=== PATIENT | male | born 1970 | race Caucasian/White ===

== ENCOUNTER 2023-08-25 01:43 | Emergency (ER) | payer BC, OTHER ==
--- NOTE | 2023-08-25 02:10 | ED Physician Documentation ---
PD HPI SKIN - Stated complaint Stated Complaint: HIVES - Chief complaint Chief Complaint: Allergic Rx - History obtained from History obtained from: Patient - Additional information Additional information: HPI from patient. Patient presents due to diffuse pruritic rash, worsening since onset 2 days ago. He believes this is due to amoxicillin prescribed after a root canal. He had been taking the amoxicillin for a week before symptom onset. Patient says he had similar reaction to amoxicillin in the past and that also did not manifest until several days into the course of the amoxicillin. Patient went to a walk-in clinic last night (08/23) and was given PO steroid (he describes medicinal-tasting liquid that began with a "d", thus likely decadron) and has been taking 25mg PO benadryl Q4 hours. He was not prescribed any medications. He presents to ED at this time due to worsening of the rash; more diffuse and intensity of itching and burning gradually, steadily worse. He denies dyspnea, lightheadedness. He notes facial swelling but denies oropharyngeal swelling, denies tightness/constriction of throat, chest. Review of Systems Cardiac: denies: Chest pain / pressure Respiratory: denies: Dyspnea, Wheezing Skin: reports: Rash PD PAST MEDICAL HISTORY - Past Medical History Past Medical History: No Cardiovascular: None Respiratory: None Neuro: None Endocrine/Autoimmune: None GI: None : None HEENT: None Psych: None Musculoskeletal: None Derm: None - Past Surgical History Past Surgical History: Yes - Present Medications Home Medications: Ambulatory Orders Medication Instructions Recorded Confirmed EPINEPHrine [Epinephrine] 0.3 mg IJ ONCE PRN #2 each 08/25/23 Ondansetron Odt [Zofran Odt] 4 mg TL Q6H PRN #10 tablet 08/25/23 predniSONE [Deltasone] 40 mg PO DAILY 4 Days #8 tablet 08/25/23 - Allergies Allergies/Adverse Reactions: Allergies Allergy/AdvReac Type Severity Reaction Status Date / Time amoxicillin Allergy Hives Verified 08/25/23 01:57 - Social History Does the pt smoke?: Yes Smoking Status: Current every day smoker Does the pt drink ETOH?: Yes Does the pt have substance abuse?: No - Immunizations Immunizations are current?: Yes - POLST Patient has POLST: No PD ED PE NORMAL - Vitals Vital signs reviewed: Yes - General General: Alert and oriented X 3, No acute distress, Well developed/nourished - HEENT HEENT: Pharynx benign (no lip swelling, no intraoral swelling. airway widely patent) - Cardiac Cardiac: RRR, No murmur - Respiratory Respiratory: No respiratory distress, Clear bilaterally PD ED PE EXPANDED - HEENT HEENT: Other (confluent facial erythema with mild periorbital edema) - Derm Derm: Urticaria (diffuse, body-wide urticaria with areas of confluence) Results - Vitals Vitals: Oxygen O2 Source Room air PD Medical Decision Making - ED course Complexity details: considered differential, d/w patient ED course: Given 0.3mg IM epinephrine, 25mg benadryl PO, 20mg PO pepcid. He vomited shortly after being given these medications and thus IV established and he is given 4mg IV zofran, 25mg benadryl IV, 20mg IV pepcid. On reevaluation, he is resting comfortably. The rash is markedly improved and he has minimal residual facial erythema, no noticeable periorbital edema. He says he feels much improved. Return precautions reviewed. I have electronically submitted prescriptions for epi-pen, 4 days of QD 40mg prednisone, and PRN 4mg TL zofran to patient's pharmacy of choice Departure - Departure Disposition: 01 Home, Self Care Clinical Impression: Allergic reaction Qualifiers: Encounter type: initial encounter Qualified Code(s): T78.40XA - Allergy, unspecified, initial encounter Condition: Good Instructions: ED Drug React Allergic Prescriptions: predniSONE [Deltasone] 40 mg PO DAILY 4 Days #8 tablet EPINEPHrine [Epinephrine] 0.3 mg IJ ONCE PRN #2 each PRN Reason: Anaphylaxis Ondansetron Odt [Zofran Odt] 4 mg TL Q6H PRN #10 tablet PRN Reason: Nausea / Vomiting Comments: I have electronically submitted prescriptions for EpiPen, ondansetron (anti- nausea medication), and prednisone (steroid to be taken once per day for the next 4 days) to the [facility] in [place]. As we discussed, you should continue to take the Benadryl as per label instructions but only as needed for symptoms of allergic reaction. You can also take Pepcid per label instructions until the symptoms resolve, as it can effect mild improvement for some patients having allergic reactions if the more traditional anti-histamines (such as benadryl) are not adequately effective. Discharge Date/Time: 08/25/23 04:35
[2023-08-25] MEDS ORDERED: CHERRY SYRUP 10 ML UDC PO ONE (02:22)
[2023-08-25] MEDS ORDERED: DEXAMETHASONE 10 MG/ML VIAL PO STA (02:22)
[2023-08-25] MEDS ORDERED: FAMOTIDINE 20 MG TABLET PO STA (02:22)
[2023-08-25] MEDS ORDERED: EPINEPHrine 1 MG/ML AMP IM STA (02:22)
[2023-08-25] MEDS ORDERED: diphenhydrAMINE 25 MG CAPSULE PO STA (02:22)
[2023-08-25] MEDS ORDERED: methylPREDNISolone SUCCINATE 125 MG/2 ML VIAL IVP STA (02:48)
[2023-08-25] MEDS ORDERED: FAMOTIDINE 20 MG/2 ML VIAL IVP STA (02:48)
[2023-08-25] MEDS ORDERED: diphenhydrAMINE INJ 50 MG/ML VIAL IVP STA (02:48)
[2023-08-25] MEDS ORDERED: ONDANSETRON 4 MG/2 ML VIAL IVP STA (04:20)
[2023-08-25] MEDS ORDERED: ONDANSETRON ODT 4 MG Prepack 2 TL PRN (04:22)
[2023-08-25 04:39] VITALS: BP 106/70; O2SAT 95
== END 2023-08-25 04:35 | disposition home or self-care (01) ==
LOC: ED 01:43
DX: T78.40XA Allergy, unspecified, initial encounter (principal); F17.200 Nicotine dependence, unspecified, uncomplicated
CPT/HCPCS: 96372; 96374; 96375; 99283; 99285; A9270; J1200

== ENCOUNTER 2023-08-26 17:41 | Emergency (ER) | payer BC ==
[2023-08-26] MEDS ORDERED: CHERRY SYRUP 10 ML UDC PO ONE ×2 (17:58→22:00)
[2023-08-26] MEDS ORDERED: SODIUM CHLORIDE 0.9% 1,000 ML IV STA (17:58)
[2023-08-26] MEDS ORDERED: diphenhydrAMINE INJ 50 MG/ML VIAL IVP STA (17:58)
[2023-08-26] MEDS ORDERED: FAMOTIDINE 20 MG TABLET PO STA (17:58)
[2023-08-26] MEDS ORDERED: DEXAMETHASONE 10 MG/ML VIAL IVP STA (17:59)
[2023-08-26 18:10] LABS: BASOPHILS % (AUTO) 0.2 %; HCT - HEMATOCRIT 42.6 % (42.0-52.0); HGB - HEMOGLOBIN 15.1 g/dL (14.0-18.0); LYMPHOCYTES # (AUTO) 0.7 10^3/uL (1.5-3.5); MEAN CORPUSCULAR HEMOGLOBIN 33.5 pg (27.0-31.0); MEAN CORPUSCULAR HGB CONC 35.4 g/dL (32.0-36.0); MEAN CORPUSCULAR VOLUME 94.5 fL (80.0-94.0); MEAN PLATELET VOLUME 9.4 fL (7.4-11.4); MONOCYTES # (AUTO) 0.2 10^3/uL (0.0-1.0); NEUTROPHILS # (AUTO) 7.2 10^3/uL (1.5-6.6); NEUTROPHILS % (AUTO) 88.6 %; PLT - PLATELET COUNT 285 10^3/uL (130-450); RED BLOOD COUNT 4.51 10^6/uL (4.70-6.10); RED CELL DISTRIBUTION WIDTH 11.9 % (12.0-15.0); WHITE BLOOD COUNT 8.2 x10^3/uL (4.8-10.8)
[2023-08-26 18:28] LABS: ALBUMIN 3.8 g/dL (3.2-5.5); ALBUMIN/GLOBULIN RATIO 1.3 (1.0-2.2); BILIRUBIN,TOTAL 0.9 mg/dL (0.2-1.0); CALCIUM 8.8 mg/dL (8.5-10.3); CREATININE 0.9 mg/dL (0.6-1.3); POTASSIUM 3.7 mmol/L (3.5-4.5); TOTAL PROTEIN 6.8 g/dL (6.4-8.9)
[2023-08-26 19:10] LABS: B. PARAPERTUSSIS- RESP PCR PAN NOT DETECTED; B. PERTUSSIS- RESP PCR PANEL NOT DETECTED; C. PNEUMONIAE- RESP PCR PANEL NOT DETECTED; CORONAVIRUS 229E-RESP PCR NOT DETECTED; CORONAVIRUS HKU1-RESP PCR NOT DETECTED; CORONAVIRUS NL63-RESP PCR NOT DETECTED; CORONAVIRUS OC43-RESP PCR NOT DETECTED; HUMAN METAPNEUMOVIRUS NOT DETECTED; INFLUENZA A- RESP PCR PANEL NOT DETECTED; INFLUENZA B - RESP PCR PANEL NOT DETECTED; M. PNEUMONIAE- RESP PCR PANEL NOT DETECTED; PARAINFLUENZA VIRUS 1 NOT DETECTED; PARAINFLUENZA VIRUS 2 NOT DETECTED; PARAINFLUENZA VIRUS 3 NOT DETECTED; PARAINFLUENZA VIRUS 4 NOT DETECTED; RHINOVIRUS/ENTEROVIRUS NOT DETECTED; RSV- RESP PCR PANEL NOT DETECTED; SARS-CoV-2 -RESP PCR PANEL NOT DETECTED
[2023-08-26] MEDS ORDERED: IPRATROPIUM/ALBUTEROL 3 ML NEB INH STA (20:29)
[2023-08-26] MEDS ORDERED: ALBUTEROL 1 PUFF INH STA (21:51)
--- NOTE | 2023-08-26 21:53 | ED Physician Documentation ---
PD HPI SKIN - Stated complaint Stated Complaint: HIVES/SOA/VOMIT - Chief complaint Chief Complaint: Allergic Rx - History obtained from History obtained from: Patient, Family - Additional information Additional information: 53-year-old male presents by private vehicle from home for allergic reaction. Patient was seen yesterday for anaphylaxis and was given EpiPen, steroids, allergy cocktail, and at the time of discharge home he reported feeling much better. Today he started noticing wheezing again and he feels like his rash has gotten worse. He states that his rash was caused by amoxicillin after a dental infection. He has been taking prednisone and 25 mg of Benadryl twice daily as well as a Pepcid today with no significant improvement. Review of Systems Constitutional: denies: Fever, Chills Cardiac: denies: Chest pain / pressure, Palpitations, Calf pain Respiratory: reports: Dyspnea, Cough, Wheezing GI: reports: Nausea. denies: Abdominal Pain, Vomiting : denies: Dysuria, Frequency, Hesitancy Skin: reports: Rash Musculoskeletal: denies: Neck pain, Back pain, Extremity pain Neurologic: denies: Generalized weakness, Focal weakness, Numbness, Syncope, Seizure, Headache, Head injury PD PAST MEDICAL HISTORY - Past Medical History Cardiovascular: None Respiratory: None Neuro: None Endocrine/Autoimmune: None GI: None : None HEENT: None Psych: None Musculoskeletal: None Derm: None - Past Surgical History Past Surgical History: Yes - Present Medications Home Medications: Ambulatory Orders Medication Instructions Recorded Confirmed EPINEPHrine [Epinephrine] 0.3 mg IJ ONCE PRN #2 each 08/25/23 Ondansetron Odt [Zofran Odt] 4 mg TL Q6H PRN #10 tablet 08/25/23 predniSONE [Deltasone] 40 mg PO DAILY 4 Days #8 tablet 08/25/23 Albuterol Sulfate [Proair 90 mcg IH Q4H #1 each 08/26/23 Respiclick] dexAMETHasone [Decadron] 4 mg PO BIDWM #14 tablet 08/26/23 - Allergies Allergies/Adverse Reactions: Allergies Allergy/AdvReac Type Severity Reaction Status Date / Time amoxicillin Allergy Hives Verified 08/25/23 01:57 - Social History Does the pt smoke?: Yes Smoking Status: Current every day smoker Does the pt drink ETOH?: Yes Does the pt have substance abuse?: No - Immunizations Immunizations are current?: Yes - POLST Patient has POLST: No PD ED PE NORMAL - Vitals Vital signs reviewed: Yes - General General: Alert and oriented X 3, Well developed/nourished - HEENT HEENT: Atraumatic, PERRL, EOMI - Neck Neck: Supple, no meningeal sign - Cardiac Cardiac: RRR, Strong equal pulses - Respiratory Respiratory: No respiratory distress, Clear bilaterally - Abdomen Abdomen: Soft, Non tender, Non distended - Derm Derm: Normal color, Warm and dry, Other (diffuse urticarial rash on arms, legs, abdomen, scalp) - Extremities Extremities: No deformity, No tenderness to palpate, Normal ROM s pain, No edema - Neuro Neuro: Alert and oriented X 3, line decorator 2-12 intact, No motor deficit, Normal speech - Psych Psych: Normal mood, Normal affect Results - Vitals Vitals: Vital Signs - 24 hr 08/26/23 08/26/23 08/26/23 17:53 19:46 20:40 Temperature 37 C 36.7 C Heart Rate 102 H 71 79 Respiratory 20 18 20 Rate Blood Pressure 112/84 H 120/75 O2 Saturation 98 97 08/26/23 08/26/23 20:55 22:00 Temperature Heart Rate 73 87 Respiratory 17 18 Rate Blood Pressure 111/73 122/83 H O2 Saturation 98 94 Oxygen O2 Source Room air - Labs Labs: Laboratory Tests 08/26/23 08/26/23 08/26/23 18:03 18:03 18:11 WBC 8.2 RBC 4.51 L Hgb 15.1 Hct 42.6 MCV 94.5 H MCH 33.5 H MCHC 35.4 RDW 11.9 L Plt Count 285 MPV 9.4 Neut # (Auto) 7.2 H Lymph # (Auto) 0.7 L Bartholomew # (Auto) 0.2 Eos # (Auto) 0.0 Baso # (Auto) 0.0 Absolute Nucleated RBC 0.00 Nucleated RBC % 0.0 Sodium 134 L Potassium 3.7 Chloride 101 Carbon Dioxide 24 Anion Gap 9.0 BUN 16 Creatinine 0.9 Estimated GFR (MDRD) 88 L Glucose 129 H Calcium 8.8 Total Bilirubin 0.9 AST 8 L ALT 18 Alkaline Phosphatase 57 Total Protein 6.8 Albumin 3.8 Globulin 3.0 Albumin/Globulin Ratio 1.3 Nasal Adenovirus (PCR) NOT DETECTED Nasal B. parapertussis DNA (PCR) NOT DETECTED Nasal Coronavir 229E PCR NOT DETECTED Nasal Coronavir HKU1 PCR NOT DETECTED Nasal Coronavir NL63 PCR NOT DETECTED Nasal Coronavir OC43 PCR NOT DETECTED Nasal Enterovir/Rhinovir PCR NOT DETECTED Nasal Influenza B PCR NOT DETECTED Nasal Influenza A PCR NOT DETECTED Nasal Parainfluen 1 PCR NOT DETECTED Nasal Parainfluen 2 PCR NOT DETECTED Nasal Parainfluen 3 PCR NOT DETECTED Nasal Parainfluen 4 PCR NOT DETECTED Nasal RSV (PCR) NOT DETECTED Nasal B.pertussis DNA PCR NOT DETECTED Nasal C.pneumoniae (PCR) NOT DETECTED Duncan Human Metapneumo PCR NOT DETECTED Nasal M.pneumoniae (PCR) NOT DETECTED Nasal SARS-CoV-2 (PCR) NOT DETECTED PD Medical Decision Making - ED course Complexity details: reviewed old records, reviewed results, re-evaluated patient, considered differential, d/w patient ED course: Patient presenting for breakthrough allergic reaction. He is currently on 40 mg daily of prednisone as well as 25 mg as needed Benadryl and 20 mg of Pepcid patient reports wheezing, however he had just coughed prior to my evaluation and his lungs are currently clear to auscultation bilaterally, he is saturating well on room air. Will repeat allergy cocktail via IV, will order basic laboratory work, and will monitor for signs of either improvement or worsening. Laboratory work is reviewed. Urticaria has improved with allergy cocktail, patient reports that his wheezing is back. On repeat pulmonary exam patient does have faint expiratory wheezes. Will order DuoNebs and will reassess. DuoNebs have resolved patient's respiratory symptoms and he reports feeling "amazing". Unfortunately due to the constraints of the holiday season there are no open pharmacies and we are unable to provide an inhaler from the ER. Patient was counseled to change the prednisone to Decadron and to increase his Benadryl and Pepcid intake. Departure - Departure Disposition: 01 Home, Self Care Clinical Impression: Allergic reaction Condition: Stable Instructions: ED Allergic Reaction General Other Prescriptions: dexAMETHasone [Decadron] 4 mg PO BIDWM #14 tablet Albuterol Sulfate [Proair Respiclick] 90 mcg IH Q4H #1 each Comments: TAKE 50MG OF BENADRYL EVERY 6-8 HOURS FOR ITCHING. YOU MAY TAKE 20MG OF PEPCID TWICE DAILY WITH THE PRESCRIBED MEDICATIONS. STOP TAKING THE PREDNISONE. Forms: PCP List Discharge Date/Time: 08/26/23 22:24
[2023-08-26] MEDS ORDERED: DEXAMETHASONE 10 MG/ML VIAL PO STA (22:00)
[2023-08-26 22:31] VITALS: BP 122/83; O2SAT 94
== END 2023-08-26 22:24 | disposition home or self-care (01) ==
LOC: ED 17:41
DX: T78.40XA Allergy, unspecified, initial encounter (principal); F17.200 Nicotine dependence, unspecified, uncomplicated
CPT/HCPCS: 36415; 80053; 85025; 87633; 94640; 94664; 96374; 99283; 99284; A9270; J1200